=== PATIENT | male | born 2000 | race African-American/Black ===

== ENCOUNTER 2023-09-26 15:14 | Outpatient (REF) | payer OTHER, SELFPAY ==
--- NOTE | ~2023-09-26 | MR_ITS ---
EXAMINATION: MR PELVIS WITHOUT CONTRAST CLINICAL INFORMATION: Lower abdominal pain; rectus abdominis conjoint tendon pain. COMPARISON: None available. TECHNIQUE: Multiplanar MR imaging was obtained through the pelvis on a 1.5 Cinthya magnet centered at the pubic symphysis per the sports hernia protocol. FINDINGS: [id number] osteitis pubis is characterized by narrowing and irregularity of the disc, marginal osteophytes, articular cortical irregularity, marked parasymphyseal marrow edema, and subarticular bone resorption. These findings are asymmetric to the left. There is minimal subchondral marrow edema in the left sacroiliac joint, favored to be related to mild arthrosis. No erosions or effusions. Imaged portions of the hips are normal. No effusions. The acetabular ruben are not well assessed on this study. The sacrum and coccyx are normal in appearance. Imaged lower lumbar spine is unremarkable. The rectus abdominis and adductor longus aponeurotic attachments are intact without tears or surrounding collections. No significant enthesitis. The adjacent subcortical foci of high signal intensity at the pubic symphysis correspond to regions of bone resorption related to the osteitis pubis. No significant surrounding intramuscular signal abnormality. Pyramidalis muscle is unremarkable. No muscle atrophy. Intrapelvic soft tissues are unremarkable. No free fluid. Bladder is normal in appearance. No adenopathy. 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 Intact rectus abdominis and adductor longus attachments at the pubic symphysis.
== END 2023-09-26 15:15 | disposition home or self-care (01) ==
LOC: HO.MRI 15:14
PROVIDERS: Visit Provider Family Medicine
DX: R10.30 Lower abdominal pain, unspecified (principal)
CPT/HCPCS: 72195